=== PATIENT | male | born 1960 | race Caucasian/White ===

== ENCOUNTER → 2023-12-31 08:35 | Outpatient (REF) | payer BC, SELFPAY ==
[2023-12-31 12:45] LABS: PSA, Total - Diagnostic 4.78 ng/ml (0.0-4.0)
== END ==
LOC: REG 08:35
PROVIDERS: ATTENDING PHYSICIAN Surgery; FAMILY PHYSICIAN Family Medicine
DX: Z12.5 Encounter for screening for malignant neoplasm of prostate (principal)
CPT/HCPCS: 36415; 84153

== ENCOUNTER → 2024-07-12 09:47 | Outpatient (REF) | payer BC, SELFPAY ==
[2024-07-13 20:36] LABS: PSA Total 7.2 ng/mL (0.0-4.0)
== END ==
LOC: REG 09:47
PROVIDERS: ATTENDING PHYSICIAN Surgery; FAMILY PHYSICIAN Family Medicine
DX: R97.20 Elevated prostate specific antigen [PSA] (principal)
CPT/HCPCS: 36415; 84153; 84154

== ENCOUNTER → 2024-10-16 17:55 | Outpatient (REF) | payer BC, SELFPAY | LOC: MRI 3T 17:55 | PROVIDERS: ATTENDING PHYSICIAN Surgery; FAMILY PHYSICIAN Family Medicine | DX: R97.20 Elevated prostate specific antigen [PSA] (principal) | CPT/HCPCS: 70030; 72197; A9575 ==

== ENCOUNTER → 2024-10-27 07:52 | Outpatient (REF) | payer MEDICARE, SELFPAY ==
[2024-10-27 09:17] LABS: % Basophils 1.9 % (0-2); % Eosinophils 5.9 % (0-6); % Immature Granulocytes 0.4 % (0-0.5); % Lymphocytes 23.9 % (20.5-51.1); % Monocytes 8.5 % (1.7-9.3); % Neutrophils 59.4 % (42.2-75.2); Absolute Basophils 0.1 10^3/uL (0-0.2); Absolute Eosinophils 0.3 10^3/uL (0-0.7); Absolute Lymphocytes 1.1 10^3/uL (1.2-3.4); Absolute Monocytes 0.4 10^3/uL (0.1-0.6); Absolute Neutrophils 2.8 10^3/uL (1.4-6.5); Hematocrit 40.9 % (39.0-52.0); Mean Corp Hgb Conc. 34.2 g/dL (33.0-37.0); Mean Corpuscular Hgb 28.9 pg (27.0-31.0); Mean Corpuscular Volume 84.3 fL (80.0-94.0); Mean Platelet Volume 8.6 fL (7.4-10.4); Nucleated Red Blood Cells % 0 % (-); Platelet Count 259 10^3/uL (130-400); Red Blood Cell Count 4.85 10^6/uL (4.70-6.10); Red Cell Dist. Width 12.2 % (11.5-14.5); White Blood Cell Count 4.7 10^3/uL (4.8-10.8)
[2024-10-27 10:00] LABS: ALT (SGPT) 32 U/L (0-50); AST (SGOT) 36 U/L (17-59); Albumin 4.4 g/dl (3.5-5.0); Alkaline Phosphatase 92 U/L (38-126); Blood Urea Nitrogen 23 mg/dl (9-20); Calcium 8.9 mg/dl (8.4-10.2); Carbon Dioxide 22 mmol/L (22-30); Chloride 105 mmol/L (98-107); Glucose 112 mg/dl (70-99); HDL Cholesterol 47 mg/dl; LDL Cholesterol, Calculated 141 mg/dl; Potassium 4.1 mmol/L (3.5-5.1); Sodium 139 mmol/L (135-145); Total Bilirubin 0.7 mg/dl (0.2-1.3); Total Cholesterol 199 mg/dl (50-199); Total Protein 6.9 g/dl (6.3-8.2); Triglyceride 59 mg/dl (10-149); Very Low Density Lipoprotein 11 mg/dl (0-30); eGFR > 60.00
[2024-10-27 11:13] LABS: TSH 1.66 uIU/ml (0.47-4.68)
[2024-10-27 11:32] LABS: Vitamin B12 344 pg/ml (239-931)
[2024-10-30 06:42] LABS: PSA Total 5.9 ng/mL (0.0-4.0)
== END ==
LOC: REG 07:52
PROVIDERS: ATTENDING PHYSICIAN Family Medicine
DX: F34.0 Cyclothymic disorder (principal); E66.9 Obesity, unspecified; Z00.00 Encounter for general adult medical examination without abnormal findings; Z11.59 Encounter for screening for other viral diseases; N52.9 Male erectile dysfunction, unspecified; R97.20 Elevated prostate specific antigen [PSA]
CPT/HCPCS: 36415; 80053; 80061; 82306; 82607; 84153; 84154; 84443; 85025

== ENCOUNTER 2024-12-06 00:32 | Inpatient (IN) | payer MEDICARE, OTHER, SELFPAY ==
[2024-12-05 23:14] LABS: Venous Blood Gas B.E. 1.9 mmol/L (-4 to +4); Venous Blood Gas HCO3 26.6 mmol/L (22-27); Venous Blood Gas O2 Sat % 97.3 %; Venous Blood Gas pCO2 41 mmHg (35-48); Venous Blood Gas pH 7.42 (7.32-7.43); Venous Blood Gas pO2 85 mmHg (30-50)
[2024-12-05 23:16] LABS: % Basophils 0.7 % (0-2); % Eosinophils 3.4 % (0-6); % Immature Granulocytes 0.7 % (0-0.5); % Lymphocytes 13.3 % (20.5-51.1); % Monocytes 7.7 % (1.7-9.3); % Neutrophils 74.2 % (42.2-75.2); Absolute Basophils 0.1 10^3/uL (0-0.2); Absolute Eosinophils 0.4 10^3/uL (0-0.7); Absolute Immature Granulocytes 0.1 10^3/uL (0-0.05); Absolute Lymphocytes 1.4 10^3/uL (1.2-3.4); Absolute Monocytes 0.8 10^3/uL (0.1-0.6); Absolute Neutrophils 7.8 10^3/uL (1.4-6.5); Hematocrit 37.3 % (39.0-52.0); Hemoglobin 12.9 g/dL (13.0-18.0); Mean Corp Hgb Conc. 34.6 g/dL (33.0-37.0); Mean Corpuscular Hgb 28.4 pg (27.0-31.0); Mean Corpuscular Volume 82.2 fL (80.0-94.0); Mean Platelet Volume 8.2 fL (7.4-10.4); Nucleated Red Blood Cells % 0 % (-); Platelet Count 258 10^3/uL (130-400); Red Blood Cell Count 4.54 10^6/uL (4.70-6.10); Red Cell Dist. Width 12.2 % (11.5-14.5); White Blood Cell Count 10.5 10^3/uL (4.8-10.8)
--- NOTE | 2024-12-05 23:19 | ED.GENMED ---
History of Present Illness
General
Source: patient, family and ambulance crew
Exam Limitations: clinical condition
Time Seen by Provider: 12/05/24 23:19
Nursing documentation reviewed up to this point in time: agreed with
History of Present Illness
History of Present Illness:
64-year-old male post cardiac arrest presents to the emergency department with a posterior STEMI both before and after ROSC. Patient was having chest pain for approximately 30 minutes. Upon arrival paramedics found the patient in distress. EKG
shows posterior lateral STEMI patient went pulseless. STEMI alert was called by myself at 10:30 PM. Patient was defibrillated by paramedics at 200 J. Put him on amiodarone. Had return of circulation. Still complaining of chest pain.
Transported with multiple EMS crews to the hospital. Upon arrival patient awake alert and oriented. Complaining of 3 out of 10 chest pain. Aspirin, Brilinta, heparin given. Dr. Leon at the bedside. Patient transported uneventfully to the Cath
Lab.
Past History
Past History
ED Past Medical History: None
ED Past Surgical History: None
Social History
Living: with family
Review of Systems
Review of Systems
Allergies reviewed?: Yes
All Other Systems: ROS reviewed and negative except as documented in HPI and ROS
Constitutional: Reports no symptoms
EENT: Reports no symptoms
Respiratory: Reports no symptoms
Cardiac: Reports chest pain and diaphoresis
ABD/GI: Reports no symptoms
: Reports no symptoms
Musculoskeletal: Reports no symptoms
Skin: Reports no symptoms
Neurological: Reports no symptoms
Endocrine: Reports no symptoms
Hematologic/Lymphatic: Reports no symptoms
Psychiatric: Reports no symptoms
Phy Exam
General Physical Exam
General Presentation: well appearing and moderate distress
General Skin: warm and diaphoretic
General Habitus: normal
General Mental: alert
General Hydration: appears well hydrated
ENT Exam
ENT Exam: EOMI, pharynx normal, neck supple and normocephalic
Eye Exam
Eye Exam: PERRL, cornea clear and conjunctiva normal
Cardiovascular Exam
Cardiovascular Exam: regular rate/rhythm, no edema, no murmur and normal peripheral pulses
Pulmonary Exam
Pulmonary Exam: lungs clear, no respiratory distress, no rales, no crackles, no rhonchi, no stridor, no wheezing and no cough
Gastrointestinal Exam
Gastrointestinal Exam: normal bowel sounds, non tender, soft, no organomegaly, no pulsatile mass and non distended
Neurological Exam
Neurological Exam: alert, oriented x3, no motor deficits and speech normal
Musculoskeletal Exam
Musculoskeletal Exam: full ROM and no edema
Skin Exam
Skin Exam: no rash, no petechia, diaphoresis and erythema
Psychiatric Exam
Psychiatric Exam: normal mood/affect
Course
Orders/Labs/Results
Orders:
Orders
12/05/24 23:00
Electrocardiogram (*1) Urgent
Reason for Study: Other
Other Reason for Exam: STEMI
EKG- Treatment ONCE
12/05/24 23:05
Complete Blood Count/With Diff Urgent
Lactic Acid Urgent
Troponin I Urgent
Venous Blood Gas Urgent
%Oxygen/Room Air: 99
12/05/24 23:06
Comprehensive Metabolic Panel Urgent
Abnormal Lab Results
12/05/24
23:05
RBC 4.54 L 10^6/uL
(4.70-6.10)
Hgb 12.9 L g/dL
(13.0-18.0)
Hct 37.3 L %
(39.0-52.0)
Abs Immat Gran (auto) 0.1 H 10^3/uL
(0-0.05)
Absolute Neuts (auto) 7.8 H 10^3/uL
(1.4-6.5)
Absolute Monos (auto) 0.8 H 10^3/uL
(0.1-0.6)
Immature Gran % 0.7 H %
(0-0.5)
Lymphocytes % 13.3 L %
(20.5-51.1)
VBG pO2 85 H mmHg
(30-50)
12/05/24 23:05
*Pulse Oximetry
Patient hypoxic: no
*EKG
Interpreted by ED Provider?: Yes
EKG Intrepretation Date: 12/05/24
Interpretation: abnormal
Comparison EKG: no comparison EKG present
Rate: normal
Rhythm: sinus
[place]: normal axis
Interval: normal interval
Ischemia: ST elevation
*Critical Care Note
Total Time (30-74mins, 75-104mins- exclusive of procedures): 40 (Critical care statement: A total of 40minutes of critical care time was provided for this patient. This includes time spent prior to patient arrival activating the Mail Inserter, speaking
with specialists, reviewing old charts.. This time is separate from time utilized to perform the aforementioned do)
ED Attending Note
-
Portions of this chart may have been created with voice recognition software.� Occasional wrong word or��sound alike� substitutions may have occurred due to the inherent limitations of voice recognition software.
Discharge Plan
Departure
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
Date of Disposition: 12/05/24
Time of Disposition: 23:25
Admit to: laborer laboratory
Presentation/result/management discussed w/ accepting MD/DO: Carolyn
Condition: Fair
Discharge Problem:
ST elevation (STEMI) myocardial infarction
Prescriptions:
No Action
hydrocodone-acetaminophen 1 TABLET tablet
1 tab PO Q4HPRN PRN (Reason: severe pain) Qty: 15 0RF
prednisone 10 MG tablet
10 mg PO .TAPER Qty: 24 0RF
Rx Instructions:
Take 40mg daily x4days, 20mg daily x3days, 10mg daily x2days.
Referrals:
UNKNOWN - PT DOES,NOT KNOW [Family Provider] -
Discharge Date and Time
Print Language: MACANESE
[2024-12-05 23:27] LABS: ACT-LR - POC 152 Seconds (116-155)
[2024-12-05 23:27] LABS: Lactic Acid 1.8 mmol/L (0.7-2.0)
[2024-12-05 23:41] LABS: ACT-LR - POC 216 Seconds (116-155)
[2024-12-05 23:47] LABS: Troponin I 0.069 ng/ml
[2024-12-05 23:48] LABS: ALT (SGPT) 33 U/L (0-50); AST (SGOT) 36 U/L (17-59); Albumin 2.9 g/dl (3.5-5.0); Alkaline Phosphatase 95 U/L (38-126); Blood Urea Nitrogen 15 mg/dl (9-20); Calcium 6.3 mg/dl (8.4-10.2); Carbon Dioxide 20 mmol/L (22-30); Chloride 114 mmol/L (98-107); Glucose 137 mg/dl (70-99); Sodium 143 mmol/L (135-145); Total Bilirubin 0.5 mg/dl (0.2-1.3); Total Protein 5.2 g/dl (6.3-8.2); eGFR > 60.00
[2024-12-05 23:57] LABS: ACT-LR - POC 302 Seconds (116-155)
[2024-12-06] VITALS (23 sets, daily range): BP systolic 123–189; BP diastolic 72–119; BMI 29.4
[2024-12-06 00:15] LABS: ACT-LR - POC 240 Seconds (116-155)
--- NOTE | 2024-12-06 01:02 | ITS.CL.CATH ---
Neuropsychology Medical Consultant - Catheterization
Cardiac Catheterization
Procedure Report:
LEFT HEART CATH AND CORONARY INTERVENTION
Date of Procedure: December 06, 2024
Referring: [facility] Emergency Department
PROCEDURES:
1. Left heart catheterization with coronary and single-plane left ventriculography
2. Complex stenting of 100% occluded large terminal obtuse marginal branch with placement of a 2.25 x 15 mm [place] stent in the distal portion of this obtuse marginal branch, 2.5 x 22 mm Lenard stent in the mid circumflex extending into the obtuse
marginal branch and a 2.5 x 8 mm [place] stent in short gap segment between the stents. The most distal stent was postdilated with a 2.25 mm noncompliant balloon to high pressures while the proximal to midportion of the stented segment was postdilated
to high pressures with a 2.75 mm noncompliant balloon to 25 leti
INDICATION: This is a 64-year-old gentleman with no prior cardiac history who reported the sudden onset of substernal chest pressure this evening. His symptoms remain unabated and 911 was called. When the ambulance crew arrived at his house he was
found to be uncomfortable and a prehospital electrocardiogram was obtained notable for anterior ST segment depression and possible lateral wall ST elevation. While at the patient's residence he developed torsades and became unresponsive. He
received immediate high-quality CPR and underwent emergent defibrillation with spiritism of sinus rhythm. A prehospital STEMI alert was activated. Upon arrival the patient was found to be awake and alert complaining of ongoing 3 out of 10 chest
tightness. He was mildly confused when he first arrived but improved. Informed consent was obtained and he was brought to the cardiac catheterization on the ambulance litter.
ACCESS: Right radial artery, 6 [place] sheath
HEMODYNAMICS (mmHg):
AO (s/d, m) : 160/82
LV (s/d) : 177/2
LVEDP : 35
CORONARY FINDINGS
Dominance: Right
LEFT MAIN: Normal
LEFT ANTERIOR DESCENDING: The LAD arises normally from the left main and runs in the anterior interventricular groove supplying several small caliber diagonal branches. There is a 50% stenosis in the mid LAD near the origin of the second diagonal
branch. The apical LAD has a 80% stenosis where the vessel is noted to be very small in caliber wrapping around the apex
CIRCUMFLEX: The circumflex is rise to a very small OM1. OM 2 is large and 100% occluded in his mid portion. The circumflex continues as a very small caliber vessel supplying small posterolateral branch.
RIGHT CORONARY: The right coronary artery is a medium caliber dominant vessel with a long 30% stenosis in its midportion. There is a complex 70% atherosclerotic plaque in the distal right coronary artery extending to the crux of the RCA. The PDA
is rather small. There is a large posterolateral branch with a 80% proximal and 70% stenosis just proximal to the bifurcation of the vessel.
VENTRICULOGRAPHY: Left ventriculography was performed in an ZHU projection. There is inferior apical hypokinesis. The estimated ejection fraction is 50%
ANGIOPLASTY PROCEDURE DETAIL: Upon review of the diagnostic catheterization films the decision was made to proceed with percutaneous revascularization of the 100% occluded OM 2. The patient received aspirin and a 180 mg loading dose of ticagrelor
in the emergency department. The ACT was monitored throughout the procedure and additional heparin was administered based on the ACT results. The ACT remained borderline to low after administration of 8000 units of heparin and the decision was
made to give an additional 3000 units of heparin and double bolus Integrilin according to the cardiac protocol.
The origin of the left main was cannulated with a 6 [place] XB 3.5 guiding catheter and a BMW guidewire across the occluded segment in OM 2 and was advanced to the distal vessel. Balloon predilation was performed using a 2.0 mm trek balloon and
angiography revealed spiritism of antegrade flow. A residual stenotic segment was noted in the distal obtuse marginal branch. This area was not predilated with a 2 mm balloon and instead was stented with a 2.25 x 15 mm Gam[place] stent that was
implanted at 14 leti. A residual dog bone area of underexpansion was noted in the midportion of the stent. A second Lenard stent was then advanced into the obtuse marginal branch measuring 2.75 x 22 mm in length. Unfortunately, the stent length did
not completely cover the diseased segment if the more distal stent was overlapped. Therefore, the 2.75 x 22 mm stent was withdrawn more proximally and the entire lesion was covered. The intervening segment was then covered with placement of a 2.5
x 8 mm Lenard stent. The entire stented segment was postdilated with noncompliant balloons including a 2.25 x 12 mm noncompliant balloon inflated between 16 and 18 leti distally and the entire proximal to midportion of the stent was postdilated with a
2.75 mm noncompliant balloon to 25 leti proximally and 14 leti distally.
SEDATION: 51 minutes of procedural sedation was utilized. An independent biomedical engineering technician was present to assist with and help manage the patient's level of consciousness and physiologic status
RADIATION SUMMARY: Fluoro Time (min): 12.9, Dose (mGy): 1171, DAP (Gy.cm2) : 105
CONCLUSIONS
1. Evolving lateral wall myocardial infarction with [id number] cardiac arrest requiring emergent cardioversion and CPR. Patient was found to have 100% occlusion of the second obtuse marginal branch and underwent successful placement of
overlapping 2.5 x 22 mm, 2.5 x 8 mm, and 2.25 x 15 mm Lenard stents. The proximal and midportion of the stents were postdilated with a 2.75 mm noncompliant balloon to high pressures while the distal stent was postdilated with a 2.25 mm noncompliant
balloon
2. Residual coronary disease in the distal right coronary artery. The apical LAD atherosclerotic disease should be managed medically
3. Preserved LV systolic function
RECOMMENDATIONS
1. Patient will be admitted to the IVU and serial troponin levels will be obtained.
2. Uninterrupted dual antiplatelet therapy for 12 months
3. High intensity statin therapy. Will check fasting lipid profile and hemoglobin A1c
4. Begin metoprolol XL and lisinopril for goal directed blood pressure management less than 130/80
5. Patient should likely return for PCI of residual coronary disease in the distal right coronary artery
Copy to: Dr. Jono Lim
--- NOTE | 2024-12-06 02:43 | PTCARENOTE ---
Received pt from [facility] laborer @ 00:36. and son bedside. AAOx3, but slightly confused on what happened. VSS. Right radial site with band on-- 8 cc of air, placed @ 00:12. C/o 09/01 chest pain. Chest tender from compressions. Discussed plan of care,
remaining on bed rest until band is off. Pt verbalizes understanding. Call dent within reach.
[2024-12-06] MEDS: TYLENOL 650 MG PO ×5 (03:36→22:26)
[2024-12-06] MEDS: KCL 40 MEQ PO (03:56)
[2024-12-06] MEDS: CALCIUM GLUCONATE 290 MG IV (04:37)
[2024-12-06] MEDS: MAGNESIUM SULFATE 102 GRAMS IV (04:37)
--- NOTE | 2024-12-06 04:51 | PTCARENOTE ---
Pt having many runs of AIVR and VTach. K 3.0 and Ca 6.3. Informed CV Matthew LAO-- ordered K, Ca, and Mag to be repleted-- see MAR.
[2024-12-06 06:54] LABS: Hematocrit 39.2 % (39.0-52.0); Hemoglobin 13.8 g/dL (13.0-18.0); Mean Corp Hgb Conc. 35.2 g/dL (33.0-37.0); Mean Corpuscular Volume 82.4 fL (80.0-94.0); Mean Platelet Volume 8.2 fL (7.4-10.4); Platelet Count 280 10^3/uL (130-400); Red Blood Cell Count 4.76 10^6/uL (4.70-6.10); Red Cell Dist. Width 12.1 % (11.5-14.5); White Blood Cell Count 10.9 10^3/uL (4.8-10.8)
[2024-12-06 07:42] LABS: Blood Urea Nitrogen 13 mg/dl (9-20); Calcium 9.6 mg/dl (8.4-10.2); Chloride 109 mmol/L (98-107); Glucose 145 mg/dl (70-99); HDL Cholesterol 43 mg/dl; LDL Cholesterol, Calculated 125 mg/dl; Magnesium 2.4 mg/dl (1.6-2.3); Potassium 4.4 mmol/L (3.5-5.1); Sodium 139 mmol/L (135-145); Total Cholesterol 186 mg/dl (50-199); Triglyceride 91 mg/dl (10-149); Very Low Density Lipoprotein 18 mg/dl (0-30)
[2024-12-06 08:04] LABS: Carbon Dioxide 19 mmol/L (22-30); eGFR > 60.00
[2024-12-06] MEDS: TOPROL XL 25 MG PO ×2 (08:23→19:18)
[2024-12-06] MEDS: LOW STRENGTH ASPIRIN 81 MG PO (08:23)
[2024-12-06] MEDS: BRILINTA 90 MG PO ×2 (08:24→19:18)
[2024-12-06] MEDS: PROTONIX 40 MG PO (08:24)
[2024-12-06] MEDS: ZESTRIL 2.5 MG PO (08:24)
--- NOTE | 2024-12-06 09:38 | W.PN.CARDCBS ---
Addendum entered and electronically signed by Hans Luna MD 12/06/24 12:46:
I saw and examined the patient.
The Carport Erector's note was reviewed and I agree with the note.
Comment:
GEN: No distress, awake, Ox3
HEENT: supple, anicteric, mmm
LUNGS: CTA, no wheezes/rales
CV: Reg, S1/S2, 1/6 syst LSB, no gallop
ABD: soft, BS+, NT/ND
EXT: No edema
NEURO: Gross non-focal
SKIN: No rash
Plan:
Cath results reviewed status post STEMI. OM2 PCI x3. Status post torsades and cardiac arrest with CPR.
On telemetry he is having frequent runs of nonsustained ventricular tachycardia. Will start amiodarone 40 mg p.o. 3 times daily. Increase Toprol to 25 mg p.o. twice daily.
Case was discussed with interventional cardiology. Plan will be for RCA PCI in AM.
Continue aspirin, Plavix, lisinopril, high-dose atorvastatin, and metoprolol.
Check echocardiogram to evaluate EF.
Continue close monitoring on telemetry.
Original Note:
Today's Communication / Plan
-
continue post IN care
Echo today
serial troponin, DAPT
keep K >4.0, Mg >2.0
Impression / Plan
-
PCP: Jono Lim,
CDY: Caden Syed MD (last seen in 2019)
64-year-old gentleman with HTN, HLD, LUDMILA intolerant of CPAP, depression, family hx of premature CAD who developed sudden onset of substernal chest pressure last night. His symptoms remain unabated and 911 was called. When the ambulance crew
arrived at his house he was found to be uncomfortable and a prehospital electrocardiogram was obtained notable for anterior ST segment depression and possible lateral wall ST elevation. While at the patient's residence he developed torsades and
became unresponsive. He received immediate high-quality CPR and underwent emergent defibrillation with moravian of sinus rhythm. A prehospital STEMI alert was activated. Upon arrival the patient was found to be awake and alert complaining of
ongoing 3 out of 10 chest tightness. He was mildly confused when he first arrived but improved. Informed consent was obtained and he was brought to the cardiac catheterization on the ambulance litter.
Impression:
Cardiac arrest - torsades, CPR and defibrillation
Acute lateral STEMI
post PCI OM2 x 3 VICKI 12/05/24
Residual RCA stenosis
NSVT/AIVR
Hypokalemia
HTN
Hyperlipidemia
LUDMILA intolerant of CPAP
Skin cancer squamous post MOHS
Elevated PSA
Depression
Family history of Premature CAD
Plan:
post cardiac arrest and PCI of occluded OM2 x 3 VICKI
Residual RCA disease, plan for staged PCI, will discuss with IC inpt or outpt
Mid LAD with 50% and apical LAD 80% very small caliber treat medically for now
tele SR with runs of NSVT and AIVR, mildly symptomatic dizzy with episodes
Having some mild chest discomfort possibly MSK with CPR or reperfusion
K 3.0 on admission repleted and 4.4 this am, goal keep K>4.0, Mg >2.0
serial troponin to peak - 45.6 this am
Echo today
LVEDP 35, c/o SOB, may give some gentle diuresis later today
DAPT ASA/Brilinta (CM to eval cost)
New start metoprolol xl 25mg, lisinopril 2.5mg, titrate as able
LDL 125, new start to high intensity statin
Elevated FBG, check A1c
Cardiac rehab c/s
f/u DCA in 2-4 weeks
continue to monitor on tele
12/05/24 LHC/PCI:
1. Left heart catheterization with coronary and single-plane left ventriculography
2. Complex stenting of 100% occluded large terminal obtuse marginal branch with placement of a 2.25 x 15 mm Lenard stent in the distal portion of this obtuse marginal branch, 2.5 x 22 mm [place] stent in the mid circumflex extending into the obtuse
marginal branch and a 2.5 x 8 mm [place] stent in short gap segment between the stents. The most distal stent was postdilated with a 2.25 mm noncompliant balloon to high pressures while the proximal to midportion of the stented segment was postdilated
to high pressures with a 2.75 mm noncompliant balloon to 25 leti
Progress Note - System Engineer
Subjective
Date of Service: December 06, 2024
mild chest discomfort 2, mild SOB
Objective
Labs:
12/06/24 06:46
12/06/24 06:46
Labs
Hgb 13.8 g/dL (13.0-18.0) 12/06/24 06:46
Hct 39.2 % (39.0-52.0) 12/06/24 06:46
Plt Count 280 10^3/uL (130-400) 12/06/24 06:46
Sodium 139 mmol/L (135-145) 12/06/24 06:46
Potassium 4.4 mmol/L (3.5-5.1) D 12/06/24 06:46
BUN 13 mg/dl (9-20) 12/06/24 06:46
Creatinine 0.8 mg/dL (0.7-1.3) 12/06/24 06:46
Glucose 145 mg/dl (70-99) H 12/06/24 06:46
Troponins
12/05/24 12/06/24 12/06/24
23:05 01:33 06:46
Troponin I 0.069 H* 9.060 H* D 45.600 H* D
Vital Signs and I&O:
Vital Signs
Temp Pulse Resp BP Pulse Ox
98 F 67 20 189/94 98
12/06/24 07:33 12/06/24 08:23 12/06/24 07:33 12/06/24 08:23 12/06/24 07:33
Vital Signs
Temp Pulse Resp BP Pulse Ox
98 F 67 20 189/94 98
12/06/24 07:33 12/06/24 08:23 12/06/24 07:33 12/06/24 08:23 12/06/24 07:33
Intake & Output
12/04/24 12/05/24 12/06/24 12/07/24
06:59 06:59 06:59 06:59
Output Total 1275 / 1275 600 / 600
Balance -1275 / -1275 -600 / -600
Physical Exam
Physical Exam
NAD, AOX3, tearful with overnight events
S1, S2, RRR
CTAB, non labored
SNTND bsx4
R rad site c/d/i
No LE edema
[2024-12-06 10:22] LABS: Glycohemoglobin (HgbA1c) 6.2 % (4.0-5.6)
--- NOTE | 2024-12-06 10:57 | CARDSERVLU ---
Echocardiogram with Lumason completed after protocol screening completed. Allergies verified.
Patent IV site: _Right accessory cephalic site clear____
IV site flushed with 0.9% NaCl pre and post administration.
Diluted bolus method utilized to enhance visualization of ventricular ortiz.
Total volume given: _2___ mL
Patient tolerated all procedures well without complications.
[2024-12-06] MEDS: CORDARONE 103 MG IV (12:18)
--- NOTE | 2024-12-06 12:23 | PTCARENOTE ---
Amino 150 mg IV bolus given through new IV placed in right arm #22, BP prior 162/78
--- NOTE | 2024-12-06 15:15 | PTCARENOTE ---
Assumed care this morning. Patient AO x3, tearful this morning. Patient having short runs of VT since early this morning. IV amino bolus given and PO amino ordered. Less frequent PVC's, couplets and short runs of VT since IV Amino given. He denies
shortness of breath or palpitations, has chest soreness from chest compressions, Tylenol given as needed. Patient out of bed to the chair for lunch today, assisted to bed late this afternoon. Using urinal to void and assisted to the bathroom once.
Lights dimmed, door closed, call dent in reach
[2024-12-06] MEDS: PACERONE 400 MG PO ×2 (15:47→22:25)
--- NOTE | 2024-12-06 16:17 | CM ---
Addendum entered by Lynn Houston 12/07/24 14:14:
pricing- pt ok with cost. it is not in stock today. lexi flores is ordering for tomorrow.
Addendum entered by Leticia Barrera RN 12/06/24 17:01:
Patient does not have [employer]. Patient has [employer] PP. Medication pricing is $471, patient is still in the deductible phase. [facility] Once patient meets his deductible cost is
$222. Lynn to discuss pricing with the patient
Original Note:
Pricing on Brilinta through the patient's [employer] Prescription Plan, ID# [id number], is $451. The patient is still in the deductible phase and then since it is a tier 4 medication he will be responsible for 24% of cost, approx $112.
[2024-12-06] MEDS: LIPITOR 80 MG PO (17:49)
[2024-12-06] MEDS: LOVENOX 40 MG SC (17:50)
[2024-12-06 18:11] LABS: Hepatitis C Antibody Negative (Negative)
[2024-12-06] MEDS: MELATONIN 5 MG PO (23:46)
--- NOTE | 2024-12-06 23:55 | PTCARENOTE ---
Pt rec'd at change of shift in chair. ambulated in hallway later -tolerated well. Pt reports having small area on sternum that is 'sensitive', worse with pressure. rates pain as 1 out of 10. sinus on telemetry with occ pvc's and pac's. pt aware of
npo status after mn.
Requested melatonin at HS dose given.
[2024-12-07] VITALS (12 sets, daily range): BP systolic 120–165; BP diastolic 72–90
[2024-12-07 05:34] LABS: Blood Urea Nitrogen 14 mg/dl (9-20); Calcium 8.2 mg/dl (8.4-10.2); Carbon Dioxide 24 mmol/L (22-30); Chloride 109 mmol/L (98-107); Estimated Creatinine Clearance 87 ml/min; Glucose 112 mg/dl (70-99); Magnesium 2.3 mg/dl (1.6-2.3); Potassium 3.9 mmol/L (3.5-5.1); Sodium 141 mmol/L (135-145); eGFR > 60.00
[2024-12-07] MEDS: ZESTRIL 2.5 MG PO (08:19)
[2024-12-07] MEDS: TOPROL XL 25 MG PO ×2 (08:19→19:14)
[2024-12-07] MEDS: PACERONE 400 MG PO ×3 (08:19→22:20)
[2024-12-07] MEDS: PROTONIX 40 MG PO (08:19)
[2024-12-07] MEDS: LOW STRENGTH ASPIRIN 81 MG PO (08:20)
[2024-12-07] MEDS: BRILINTA 90 MG PO ×2 (08:20→19:13)
--- NOTE | 2024-12-07 14:20 | PTCARENOTE ---
patient sent to laboratory technical specialist, report given
--- NOTE | 2024-12-07 14:35 | CM ---
spoke to pt in room, he is prev indep, lives with his in a 2 story home with 2 steps to enter. he denies any dc planning needs or dme's. plan is for dc to home when medically stable.
[2024-12-07 14:46] LABS: ACT-LR - POC 276 Seconds (116-155)
[2024-12-07 15:25] LABS: ACT-LR - POC 263 Seconds (116-155)
[2024-12-07 15:33] LABS: ACT-LR - POC > 397 Seconds (116-155)
[2024-12-07] MEDS: TYLENOL 650 MG PO (15:58)
--- NOTE | 2024-12-07 16:02 | ITS.CL.CATH ---
Door Clamp Operator - Catheterization
Cardiac Catheterization
Procedure Report:
ANGIOPLASTY REPORT
Date of Procedure: December 07, 2024
Referring: Dr. Caden Leon
INDICATIONS: Staged coronary intervention
PROCEDURES:
1. Successful stenting of the distal right coronary artery into the posterolateral branch with overlapping 3.0 x 8 mm and 2.5 x 38 mm Lenard stents
ACCESS: Right radial artery, 6 [place] sheath
ANGIOPLASTY REPORT: Arterial access was obtained in the right radial artery and a 6 [place] sheath was inserted. Intravenous heparin was administered and the ACT was monitored throughout the procedure and maintained within therapeutic limits. The
origin of the right coronary artery was cannulated with a 6 [place] JR4 guiding catheter and a short BMW guidewire was advanced into the distal right coronary artery more proximal daughter branch arising from the posterolateral branch while the
second BMW guidewire was advanced to the superior daughter branch from the posterolateral artery. Balloon predilation was performed with a 2.0 mm trek balloon and was followed by placement of a 2.5 x 38 mm Lenard stent that was implanted at nominal
pressures. The distal aspect of the stent was postdilated with a 2.5 mm noncompliant balloon. The entirety of the lesion did not appear well covered by the stent and a 3.0 x 8 mm Lenard stent was positioned in an overlapping fashion and implanted at
nominal pressures. The entire proximal to midportion of the stent was postdilated with a 3 mm noncompliant balloon to high pressures with a nice angiographic result
COMPLICATIONS: None
SEDATION: 59 minutes of procedural sedation was utilized. An independent medical technologist chemistry was present to assiste with and help manage the patient's level of consciousness and physiologic status
RADIATION SUMMARY: Fluoro Time (min): 11.5, Dose (mGy): 965, DAP (Gy.cm2) : 64.2
CONCLUSION
1. Successful stenting of the distal right coronary artery with overlapping 3.0 x 8 mm and 2.5 x 38 mm [place] stents that were implanted at nominal pressures and postdilated in the proximal midportion of the stent with a 3.0 mm noncompliant balloon
and distally with a 2.5 mm noncompliant balloon
RECOMMENDATIONS
1. Continue dual antiplatelet therapy for 1 year
2. Continued risk factor modification
Copy to: Dr. Caden Leon
--- NOTE | 2024-12-07 16:17 | PTCARENOTE ---
Patient returned from the shift lab technician, AO x 3. SB HR in the 50's, BP 136/72, POX 97%, TR band right wrist intact, no bleeding. C/o 3 out 10 headache Tylenol given
[2024-12-07] MEDS: LIPITOR 80 MG PO (17:09)
[2024-12-07] MEDS: ZESTRIL 5 MG PO (17:09)
[2024-12-07] MEDS: LOVENOX SC (17:19)
--- NOTE | 2024-12-07 21:52 | PTCARENOTE ---
TR band removed at 19:15 w/out any complications. Dry dressing applied. Patient educated on activity restrictions, verbalized understanding. Tele remains SR w/ occasional PACs. Denies any discomfort. VSS. Patient ambulating in hallway, and denies
any dizziness. POC ongoing, call dent in reach.
[2024-12-07] MEDS: MELATONIN 5 MG PO (22:20)
[2024-12-08 03:47] VITALS: BP 125/76
[2024-12-08 04:21] LABS: Hematocrit 39.2 % (39.0-52.0); Hemoglobin 13.5 g/dL (13.0-18.0); Mean Corp Hgb Conc. 34.4 g/dL (33.0-37.0); Mean Corpuscular Hgb 28.7 pg (27.0-31.0); Mean Corpuscular Volume 83.2 fL (80.0-94.0); Mean Platelet Volume 8.6 fL (7.4-10.4); Platelet Count 308 10^3/uL (130-400); Red Blood Cell Count 4.71 10^6/uL (4.70-6.10); Red Cell Dist. Width 12.3 % (11.5-14.5); White Blood Cell Count 9.8 10^3/uL (4.8-10.8)
[2024-12-08 04:45] LABS: Blood Urea Nitrogen 19 mg/dl (9-20); Calcium 8.3 mg/dl (8.4-10.2); Carbon Dioxide 24 mmol/L (22-30); Chloride 106 mmol/L (98-107); Estimated Creatinine Clearance 78 ml/min; Glucose 113 mg/dl (70-99); Magnesium 2.2 mg/dl (1.6-2.3); Sodium 140 mmol/L (135-145); eGFR > 60.00
[2024-12-08 07:26] VITALS: BP 119/67
[2024-12-08] MEDS: LOW STRENGTH ASPIRIN 81 MG PO (07:55)
[2024-12-08] MEDS: TOPROL XL 25 MG PO (07:55)
[2024-12-08] MEDS: BRILINTA 90 MG PO (07:55)
[2024-12-08] MEDS: PACERONE 400 MG PO (07:55)
[2024-12-08] MEDS: NORVASC 5 MG PO (07:55)
[2024-12-08] MEDS: PROTONIX 40 MG PO (07:56)
[2024-12-08] MEDS: ZESTRIL 10 MG PO (07:56)
--- NOTE | 2024-12-08 08:22 | PTCARENOTE ---
Assumed care of pt from mine shifter RN. Wilber3. NSR on tele, HRs 60s. Pt ambulating halls independently. R radial site CDI. Neurovascular checks WDL. Pt without complaint at this time. Assessment documented. Plan for discharge home today.
[2024-12-08 10:38] VITALS: BP 123/66
--- NOTE | 2024-12-08 11:10 | W.PN.CARDCBS ---
Addendum entered and electronically signed by Gerardo Don MD 12/08/24 12:09:
I saw and examined the patient.
The [employer]PAR[employer] LINEMAN or PA's note was reviewed and I agree with the note.
Comment: General: Well developed, well nourished in NAD.
Neck: Supple, no JVD, HJR, carotids +2 B/L, no bruits bilaterally.
Heart: Non displaced PMI, RRR, no murmurs, No S3, S4, no rubs.
Lungs: Clear to auscultation bilaterally, no wheeze, rhonchi, rubs bilaterally,
normal expiratory phase.
Extremities: No clubbing, cyanosis or edema bilaterally.
Neuro: Grossly nonfocal, awake, alert and oriented x3.
No VTE. No chest pain or shortness of breath. Will discharge on amiodarone 20 mg p.o. twice daily and follow-up in our office. Can consider weaning off amiodarone and/or change checking monitor but VT was felt to be ischemic related and it has
resolved
Original Note:
Today's Communication / Plan
-
adjust amiodarone to 200mg BID
followup at [facility]
home today
Impression / Plan
-
PCP: Jono Lim,
CDY: Mukund Leon MD
64-year-old gentleman with HTN, HLD, ULDMILA intolerant of CPAP, depression, family hx of premature CAD.
Acute SSCP unrelieved, called EMS, prehospital EKG with ant ST dep and lateral ST elevations. While at his residence, pt developed torsades and became unresponsive, received immediate CPR w/defibrillation with ROSC. Prehospital STEMI alert called
and brought to ER.
Pt continued to have 3/10 chest pain. Brought urgently to [facility].
[facility] 12/06- mid OM2 100% occlusion- s/p angioplasty w/3 overlapping VICKI
residual CAD- mid LAD 50%, small apical LAD 80%, distal RCA 70%, PLB 70-80%
LVGram- inferopical HK, EF 50%
[facility] 12/07- staged distal RCA angioplasty w/2 overlapping VICKI
Echo 12/06- nml LVSF, EF 50-55%, mod inferolat/apical HK, stage I diastolic dysf, mild TR, PASP 35.
IMPRESSION:
Out of hospital cardiac arrest - torsades, CPR and defibrillation
Acute lateral STEMI
S/P OM2 PCI w/3 overlapping VICKI, 12/06/24
S/P RCA PCI w/2 overlapping VICKI, 12/07/24
NSVT/AIVR
HTN
Hyperlipidemia
LUDMILA/CPAP intol
Skin cancer squamous post MOHS
Elevated PSA
Depression
Family history of Premature CAD
PLAN:
Tele- NSR 60s w/PACs, AIVR
Radial cath site sore but stable
Mild chest discomfort has all but gone- none at rest or exertion
Peak trop 45.6
Echo results noted
NSVT/AIVR- loaded with amiodarone IV and changed to 400 TID-
now asymptomatic and with less arrhythmia- discussed w/Dr. Rodrigues/EP- decrease to 200mg BID at home with outpt titration
DAPT w/asa, brilinta- pt ok with cost
New start- metoprolol, lisinopril
Lipid profile noted- new start atorvastatin
A1C elevated 6.2%- discussed w/pt and he will followup with PCP regarding management
Cardiac rehab consult
Followup at [facility] as scheduled
home today
Progress Note - Mgmt Consultant
Subjective
Date of Service: December 08, 2024
Denies cp/palps/dyspnea/dizziness
oob ambulating
cath site tender but stable
Objective
Labs:
12/08/24 03:45
12/08/24 03:45
Labs
Hgb 13.5 g/dL (13.0-18.0) 12/08/24 03:45
Hct 39.2 % (39.0-52.0) 12/08/24 03:45
Plt Count 308 10^3/uL (130-400) 12/08/24 03:45
Sodium 140 mmol/L (135-145) 12/08/24 03:45
Potassium 4.0 mmol/L (3.5-5.1) 12/08/24 03:45
BUN 19 mg/dl (9-20) 12/08/24 03:45
Creatinine 1.0 mg/dL (0.7-1.3) 12/08/24 03:45
Glucose 113 mg/dl (70-99) H 12/08/24 03:45
Troponins
12/05/24 12/06/24 12/06/24
23:05 01:33 06:46
Troponin I 0.069 H* 9.060 H* D 45.600 H* D
12/06/24
12:07
Troponin I 37.700 H*
Vital Signs and I&O:
Vital Signs
Temp Pulse Resp BP Pulse Ox
97.9 F 63 18 123/66 98
12/08/24 10:45 12/08/24 10:37 12/08/24 10:45 12/08/24 10:38 12/08/24 10:45
Vital Signs
Temp Pulse Resp BP Pulse Ox
97.9 F 63 18 123/66 98
12/08/24 10:45 12/08/24 10:37 12/08/24 10:45 12/08/24 10:38 12/08/24 10:45
Intake & Output
12/06/24 12/07/24 12/08/24 12/09/24
06:59 06:59 06:59 06:59
Intake Total 1300 / 1300 960 / 960
Output Total 1275 / 1275 1150 / 1150
Balance -1275 / -1275 150 / 150 960 / 960
Physical Exam
Physical Exam
AAOx3, MAEE 5/5
RRR S1 S2 no murmurs
CTA bilat, non labored
soft abd, + bs
right radial site w/mild erythema but soft, no ht/bleeding
bilat extremities w/palpable distal pulses, no edema
--- NOTE | 2024-12-08 11:46 | W.DS.TRANS ---
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
-
Discharge Instructions:
Discharge Diagnosis/Procedures STEMI
Angioplasty with stent x3 to Obtuse Marginal
artery (12/06/24)
Angioplasty with stent x2 to Right Coronary
artery (12/07/24)
Diet Low Cholesterol
Driving Restrictions No driving for 24 hours
Other Services Cardiac Rehab
Instructions:
Stand-Alone Forms: DC Instructions- Cath/EP Lab
Changes to Home Medications: Yes
Discharge Medications:
DC Medications w/original date entered in [employer]
aspirin 81 mg chewable tablet 81 mg PO DAILY #1 tab 12/07/24
atorvastatin 80 mg tablet 80 mg PO QPM #90 tabs 12/07/24
metoprolol succinate 25 mg tablet,extended release 24 hr 25 mg PO BID #60 tabs 12/07/24
ticagrelor 90 mg tablet (Brilinta) 90 mg PO BID #60 tabs 12/07/24
amiodarone 200 mg tablet 200 mg PO BID #60 tabs 12/08/24
amlodipine 5 mg tablet 5 mg PO DAILY #90 tabs 12/08/24
lisinopril 10 mg tablet 10 mg PO DAILY #90 tabs 12/08/24
pantoprazole 40 mg tablet,delayed release 40 mg PO DAILY #90 tabs 12/08/24
Home Medication Changes
ALL MEDS ARE NEW
Pending Results: No
== END 2024-12-08 11:02 | disposition home or self-care (01) | DRG 321 ==
LOC: IVU 00:32
PROVIDERS: Nurse Practitioner Adult Health; ADMITTING PHYSICIAN Internal Medicine; ATTENDING PHYSICIAN Internal Medicine Interventional Cardiology; EMERGENCY PHYSICIAN Student in an Organized Health Care Education/Training Program
PROC: 4A023N7 Measurement of Cardiac Sampling and Pressure, Left Heart, Percutaneous Approach (ICD-10-PCS; 2024-12-06)
PROC: B2111ZZ Fluoroscopy of Multiple Coronary Arteries using Low Osmolar Contrast (ICD-10-PCS; 2024-12-06)
PROC: B2151ZZ Fluoroscopy of Left Heart using Low Osmolar Contrast (ICD-10-PCS; 2024-12-06)
PROC: 027036Z Dilation of Coronary Artery, One Artery with Three Drug-eluting Intraluminal Devices, Percutaneous Approach (ICD-10-PCS; 2024-12-06)
PROC: 027035Z Dilation of Coronary Artery, One Artery with Two Drug-eluting Intraluminal Devices, Percutaneous Approach (ICD-10-PCS; 2024-12-07)
DX: I21.29 ST elevation (STEMI) myocardial infarction involving other sites (principal); I46.2 Cardiac arrest due to underlying cardiac condition; I47.21 Torsades de pointes; I47.29 Other ventricular tachycardia; E87.6 Hypokalemia; I10 Essential (primary) hypertension; I25.10 Atherosclerotic heart disease of native coronary artery without angina pectoris; E78.5 Hyperlipidemia, unspecified; G47.33 Obstructive sleep apnea (adult) (pediatric); F32.A Depression, unspecified; R97.20 Elevated prostate specific antigen [PSA]; Z82.49 Family history of ischemic heart disease and other diseases of the circulatory system
CPT/HCPCS: 80048; 80053; 80061; 82805; 83036; 83605; 83735; 84484; 85025; 85027; 85347; 86803; 93005; 93306; 93458; 99152; 99153; 99291; C1725; C1769; C1874; C1887; C1894; C9600; C9606; J1327; Q9950; Q9967

== ENCOUNTER → 2024-12-19 18:33 | Outpatient (REF) | payer MEDICARE, OTHER, SELFPAY | LOC: RAD 18:33 | PROVIDERS: ATTENDING PHYSICIAN Family Medicine | DX: R06.02 Shortness of breath (principal) | CPT/HCPCS: 71046 ==

== ENCOUNTER 2025-01-02 14:27 | Outpatient (RCR) | payer MEDICARE, OTHER, SELFPAY | END 2025-01-02 23:59 | disposition home or self-care (01) | LOC: CRHB 14:27 | PROVIDERS: ATTENDING PHYSICIAN Family Medicine | DX: I21.01 ST elevation (STEMI) myocardial infarction involving left main coronary artery (principal); I25.10 Atherosclerotic heart disease of native coronary artery without angina pectoris; Z95.5 Presence of coronary angioplasty implant and graft | CPT/HCPCS: G0422; G0423 ==

== ENCOUNTER 2025-02-07 08:47 | Outpatient (RCR) | payer MEDICARE, OTHER, SELFPAY | END 2025-02-07 23:59 | disposition home or self-care (01) | LOC: CRHB 08:47 | PROVIDERS: ATTENDING PHYSICIAN Internal Medicine Interventional Cardiology | DX: I25.10 Atherosclerotic heart disease of native coronary artery without angina pectoris (principal); Z95.5 Presence of coronary angioplasty implant and graft; I25.2 Old myocardial infarction | CPT/HCPCS: 36415; 80053; 80061; 83880; 84153; 84154; 84443; G0422; G0423 ==

== ENCOUNTER 2025-03-21 08:45 | Outpatient (RCR) | payer MEDICARE, OTHER, SELFPAY | END 2025-03-21 23:59 | disposition home or self-care (01) | LOC: CRHB 08:45 | PROVIDERS: ATTENDING PHYSICIAN Internal Medicine Interventional Cardiology | DX: I25.10 Atherosclerotic heart disease of native coronary artery without angina pectoris (principal); I25.2 Old myocardial infarction; Z95.5 Presence of coronary angioplasty implant and graft | CPT/HCPCS: 36415; 80048; G0422; G0423 ==

== ENCOUNTER 2025-04-20 08:51 | Outpatient (RCR) | payer MEDICARE, OTHER, SELFPAY ==
[2025-03-30 13:19] LABS: HDL Cholesterol 33 mg/dl; LDL Cholesterol, Calculated 61 mg/dl; Very Low Density Lipoprotein 8 mg/dl (0-30)
== END 2025-04-20 23:59 | disposition home or self-care (01) ==
LOC: CRHB 08:51
PROVIDERS: ATTENDING PHYSICIAN Internal Medicine Interventional Cardiology; FAMILY PHYSICIAN Family Medicine
DX: I25.10 Atherosclerotic heart disease of native coronary artery without angina pectoris (principal); I25.2 Old myocardial infarction; Z95.5 Presence of coronary angioplasty implant and graft
CPT/HCPCS: 36415; 80061; G0422; G0423

== ENCOUNTER 2025-05-04 09:24 | Outpatient (RCR) | payer MEDICARE, OTHER, SELFPAY | END 2025-05-05 10:37 | disposition home or self-care (01) | LOC: CRHB 09:24 | PROVIDERS: ATTENDING PHYSICIAN Internal Medicine Interventional Cardiology; FAMILY PHYSICIAN Family Medicine | DX: I25.10 Atherosclerotic heart disease of native coronary artery without angina pectoris (principal); Z95.5 Presence of coronary angioplasty implant and graft; I25.2 Old myocardial infarction | CPT/HCPCS: G0422; G0423 ==

== ENCOUNTER → 2025-06-12 08:15 | Outpatient (REF) | payer MEDICARE, OTHER, SELFPAY | LOC: RCS 08:15 | PROVIDERS: ATTENDING PHYSICIAN Internal Medicine Interventional Cardiology; FAMILY PHYSICIAN Family Medicine | DX: R00.1 Bradycardia, unspecified (principal) | CPT/HCPCS: 93306; Q9950 ==